=== PATIENT | female | born 1935 | race Hispanic/Latino ===

== ENCOUNTER → 2022-01-04 | Outpatient (CLI) | payer MEDICARE ==
[~2022-01-04] MED LIST: B2/V1TAB PO; CYCL-309 PO; ESOM40CA PO; FEXO180T94 PO; LEVO500T2 PO; PHEN100C9 PO; VALS80TA30 PO; VENL75TA89 PO; ZOLP10TA6 PO
== END | disposition home or self-care (01) ==
LOC: RAH 09:32
PROVIDERS: ATTEND Otolaryngology Plastic Surgery within the Head & Neck
DX: K21.9 Gastro-esophageal reflux disease without esophagitis (principal); R13.10 Dysphagia, unspecified
CPT/HCPCS: 74230; 92611

== ENCOUNTER → 2022-08-31 | Outpatient (CLI) | payer OTHER ==
[~2022-08-31] MED LIST changes: -B2/V1TAB PO; +B2/V1TAB2 PO
== END | disposition home or self-care (01) ==
LOC: RAH 10:02
PROVIDERS: ATTEND Internal Medicine
DX: M19.012 Primary osteoarthritis, left shoulder (principal); M25.512 Pain in left shoulder
CPT/HCPCS: 71100; 73030; 73521

== ENCOUNTER → 2023-01-11 | Outpatient (CLI) | payer OTHER | END | disposition home or self-care (01) | LOC: RAH 11:30 | PROVIDERS: ATTEND Internal Medicine | DX: M47.816 Spondylosis without myelopathy or radiculopathy, lumbar region (principal); M47.812 Spondylosis without myelopathy or radiculopathy, cervical region; R05.9 Cough, unspecified; M48.061 Spinal stenosis, lumbar region without neurogenic claudication; S09.90XS Unspecified injury of head, sequela; S19.9XXS Unspecified injury of neck, sequela; S29.9XXS Unspecified injury of thorax, sequela; X58.XXXS Exposure to other specified factors, sequela | CPT/HCPCS: 71046; 72040; 72070; 72100 ==

== ENCOUNTER → 2023-01-17 | Outpatient (CLI) | payer OTHER | END | disposition home or self-care (01) | LOC: RAH 10:52 | PROVIDERS: ATTEND Internal Medicine | DX: R68.84 Jaw pain (principal); S19.9XXA Unspecified injury of neck, initial encounter; S09.90XS Unspecified injury of head, sequela | CPT/HCPCS: 70330 ==

== ENCOUNTER → 2023-02-02 | Outpatient (CLI) | payer OTHER | END | disposition home or self-care (01) | LOC: RAH 11:30 | PROVIDERS: ATTEND Internal Medicine | DX: R91.8 Other nonspecific abnormal finding of lung field (principal); M47.815 Spondylosis without myelopathy or radiculopathy, thoracolumbar region; Z90.49 Acquired absence of other specified parts of digestive tract | CPT/HCPCS: 71250 ==

== ENCOUNTER → 2023-11-18 | Outpatient (CLI) | payer OTHER | END | disposition home or self-care (01) | LOC: SHCH 11:00 | PROVIDERS: ATTEND Internal Medicine Cardiovascular Disease | DX: I10 Essential (primary) hypertension (principal) | CPT/HCPCS: 93306 ==

== ENCOUNTER → 2025-01-15 | Outpatient (CLI) | payer OTHER ==
[2025-01-15 10:47] LABS: NUCLEATED RED BLOOD CELLS 0.0 % (0.0-0.19); PLATELET COUNT (AUTO) 51 K/uL (130-400); RED BLOOD CELL COUNT(AUTO) 4.17 MIL/uL (4.00-5.50); RED CELL DISTRIBUTION WIDTH 13.9 % (11.0-15.5); WHITE BLOOD COUNT (AUTO) 3.6 K/uL (4.8-10.8)
[2025-01-15 11:17] LABS: ASPARTATE AMINOTRANSFERASE 41.0 U/L (10-37); CREATININE 0.5 mg/dL (0.5-1.0); GLOMERULAR FILTR. RATE CALC 91.0 mL/min (>90); GLUCOSE,RANDOM 109.0 mg/dL (70-105); SODIUM SERUM 148.0 mmol/L (136-145); TOTAL PROTEIN, SERUM 7.1 g/dL (6.0-8.3); UREA NITROGEN, BLOOD 10.0 mg/dL (7-18)
[2025-01-15 11:51] LABS: INR 1.15 (0.85-1.15)
--- NOTE | 2025-01-16 06:24 | HMCIMG ---
EXAMINATION: ULTRASOUND OF THE ABDOMEN (LIMITED) WITH COLOR DOPPLER. CLINICAL HISTORY: Pain. COMPARISON: None. TECHNIQUE: Real-time grayscale ultrasound images of the abdomen. In addition, color Doppler is medically necessary to perform in order to evaluate vascularity and blood flow. FINDINGS: Liver: Normal in caliber, the right hepatic lobe measures 14.0 cm in the craniocaudal dimension. There is coarse echotexture of the hepatic parenchyma. There is no focal hepatic abnormality or intrahepatic biliary ductal dilatation. There is normal spectral Doppler of the main portal vein. Gallbladder: Post cholecystectomy status. Common bile duct is dilated in caliber, measuring 0.80 cm. Pancreas: Normal in caliber and echotexture. No calcification or dilated pancreatic duct. The right kidney is normal in caliber, the right kidney measures 10.2 x 4.8 x 4.3 cm in its craniocaudal, AP, and transverse dimensions respectively. There is normal renal cortical thickness, and cortical echogenicity. There is no renal calculus or hydronephrosis. IMPRESSION: Chronic liver disease. Dilated common bile duct. Recommend MRCP. /Eric
== END | disposition home or self-care (01) ==
LOC: RAH 09:17
DX: Z51.81 Encounter for therapeutic drug level monitoring (principal); K76.89 Other specified diseases of liver; E04.2 Nontoxic multinodular goiter; K76.82 Hepatic encephalopathy; M62.81 Muscle weakness (generalized); Z79.899 Other long term (current) drug therapy; K83.8 Other specified diseases of biliary tract
CPT/HCPCS: 36415; 76705; 80053; 80185; 82105; 82140; 84439; 84443; 85027; 85610; 85730

== ENCOUNTER → 2025-04-07 | Outpatient (CLI) | payer OTHER ==
--- NOTE | 2025-04-08 08:34 | HMCIMG ---
EXAMINATION: ULTRASOUND OF THE THYROID. CLINICAL HISTORY: Non toxic multinodular goiter. COMPARISON: None. TECHNIQUE: Transverse and longitudinal images were obtained through both lobes and the isthmus of the thyroid. FINDINGS: The thyroid gland is normal in caliber with homogenous tissue echotexture. The right thyroid lobe measures 4.8 x 3.3 x 2.8 cm and the left thyroid lobe measures 2.9 x 1.7 x 1.8 cm in the craniocaudal, AP, and transverse dimensions respectively. The isthmus measures 0.28 cm in AP dimension. Right lobe: There is an isoechoic solid nodule that measures 3.4 x 2.4 x 2.5 cm at the upper pole (TR3). There is an isoechoic solid nodule that measures 1.9 x 2.7 x 2.3 cm at the upper pole (TR4). Left lobe: There is a hyperechoic solid nodule that measures 1.4 x 1.2 x 1.5 cm at the mid pole (TR3). No significantly enlarged lymph nodes. IMPRESSION: Nodules in both lobes of the thyroid. TI-RADS follow up recommendations: TR1: no FNA required TR2: no FNA required TR3: more than or equal to 1.5 cm follow up, more than or equal to 2.5 cm FNA follow up: 1, 3 and 5 years TR4: more than or equal to 1.0 cm follow up, more than or equal to 1.5 cm FNA follow up: 1, 2, 3 and 5 years TR5: more than or equal to 0.5 cm follow up, more than or equal to 1.0 cm FNA annual follow up for up to 5 years /Eric
== END | disposition home or self-care (01) ==
LOC: RAH 12:47
PROVIDERS: ATTEND Internal Medicine
DX: E04.2 Nontoxic multinodular goiter (principal); E03.9 Hypothyroidism, unspecified
CPT/HCPCS: 76536